=== PATIENT | female | born 2000 | race African-American/Black ===

== ENCOUNTER 2023-09-22 07:43 | Emergency (ER) | payer OTHER, SELFPAY ==
[2023-09-22] VITALS (8 sets, daily range): BP systolic 95–114; BP diastolic 54–71; BMI 39.4
--- NOTE | 2023-09-22 09:08 | ED.GENMED ---
History of Present Illness
General
Chief Complaint: Headache
Source: patient
Exam Limitations: none
Time Seen by Provider: 09/22/23 09:06
Nursing documentation reviewed up to this point in time: agreed with
History of Present Illness
History of Present Illness:
23-year-old female with past medical history of asthma, migraines and emergency department concerns of a headache. Patient reports that for the past few days, she has had a headache and associated sensitivity to light. She states that she feels in
the frontal region and feels that it will wrap around to the back of her head. Patient denies any blurry vision or visual loss. Patient denies any syncopal episodes, seizure like activity. Patient denies any sudden onset of her headaches, denies
neck pain, fevers or chills, weakness on one side of the body, paresthesias. Patient states that she would take 400 mg of ibuprofen for her headache, and this would temporarily resolve her symptoms, only for her headache to return. Patient also
notes that she started to have chest discomfort that started earlier this morning. Patient thinks her father may have had a heart attack, but she is unsure what age. Patient denies any other family history of cardiac disease. Patient denies personal
history of smoking. Patient denies a pleuritic component to her pain. Patient states that her pain is worse with movement. Patient denies any trauma to the area. She does not take any daily medications.
Past History
Past History
ED Past Medical History: None
ED Past Surgical History: None
Social History
Tobacco: Other (hooka)
Alcohol: None
Drug: None
Personal: Single
Living: with family
Employment: Employed
Review of Systems
Review of Systems
All Other Systems: ROS reviewed and negative except as documented in HPI and ROS
Phy Exam
Physical Exam
Physical Exam:
General: Patient is well appearing and in no acute distress; non-toxic
Skin: Warm and dry, no rashes or lesions
Head: Normocephalic, atraumatic. No temporal artery tenderness bilaterally.
Eyes: Sclera non-icteric. EOMs intact. PERRLA.
Cardiac: Regular rate and rhythm, no murmurs. Tenderness palpation of the external chest wall.
Peripheral Vascular: No lower extremity swelling or edema.
Pulm: Normal respiratory effort, no wheezes, rales, rhonchi. Equal breath sounds bilaterally.
Musculoskeletal: 5/5 strength in bilateral upper and lower extremities.
Neuro: CN II-XII intact, no focal neurologic deficits. Normal finger to nose, heel to lindsay testing.
Psychiatric: Appropriate mood and affect.
Scores
PERC Rule Criteria
Age <50 years: Yes
HR <100 bpm: Yes
Room air oxygen sat >94%: Yes
History of DVT or PE: No
Recent trauma or surgery: No
Hemoptysis: No
Exogenous estrogen: No
Clinical signs suggestive of DVT: No
: No
Considered low risk for PE: Yes
PERC Score: 0
PE can be excluded by PERC: Yes
Course
Orders/Labs/Results
Orders:
Orders
09/22/23 07:57
Electrocardiogram (*1) Urgent
Reason for Study: Chest Pain
EKG- Treatment ONCE
09/22/23 09:18
IV Insert/Care/Rem.- Treatment PRN
0.9% Sodium Chloride 1000 ml [Nss] 1,000 ml IV BOLUS
Diphenhydramine [Benadryl] 25 mg IV NOW STA
Ketorolac [Toradol] 15 mg IV NOW STA
Metoclopramide [Reglan] 10 mg IV NOW STA
09/22/23 09:54
CMP [Comprehensive Metabolic Panel] Urgent
Complete Blood Count/With Diff Urgent
HCG, Serum Qualitative Screen Urgent
Comment: ADD ON
Troponin I Urgent
09/22/23 10:00
Add On- LAB Urgent
Tests Added?: HCG qual
09/22/23 11:21
Acetaminophen [Tylenol] 1,000 mg PO NOW STA
Abnormal Lab Results
09/22/23
09:54
RBC 3.63 L 10^6/uL
(4.20-5.40)
Hgb 10.9 L g/dL
(12.0-16.0)
Hct 33.4 L %
(37.0-47.0)
MCHC 32.6 L g/dL
(33.0-37.0)
MPV 11.6 H fL
(7.4-10.4)
09/22/23 09:54
09/22/23 09:54
Vital Signs
Initial and Last Documented VS:
Initial Vital Signs
Temp Pulse Resp BP Pulse Ox
98.7 F 74 16 105/70 99
09/22/23 07:51 09/22/23 07:51 09/22/23 07:51 09/22/23 07:51 09/22/23 07:51
Last Documented Vital Signs
Temp Pulse Resp BP Pulse Ox
98.5 F 73 18 103/71 99
09/22/23 12:26 09/22/23 12:26 09/22/23 12:26 09/22/23 12:26 09/22/23 12:26
MDM/Problems Addressed
Differential Diagnosis Includes:
ddx include complex migraine, tension headache, cluster headache, CVA
MDM/Problems Addressed:
Headache:
23-year-old female with past medical history of asthma, migraines and emergency department concerns of a headache. Patient reports that for the past few days, she has had a headache and associated sensitivity to light. She states that she feels in
the frontal region and feels that it will wrap around to the back of her head. Patient denies any blurry vision or visual loss. Patient denies any syncopal episodes, seizure like activity. Patient denies any sudden onset of her headaches, denies
neck pain, fevers or chills, weakness on one side of the body, paresthesias.
Patient's headache and chest pain resolved with migraine cocktail. Patient states this is similar to migraines she has had in the past. Patient has never seen a neurologist before for this issue and has never been evaluated by her primary for this
issue. Patient has never been on a migraine prevention medication. I spoke to Dr. Pizarro, neurologist geriatric personal care aide who recommends starting Topiramate 25 mg tablet once daily. Patient stable for discharge, provided referral for neurology follow up.
Chronic conditions affecting care:
asthma
Acute Exacerbation and/or Progression of Chronic Illness:
n/a
*Pulse Oximetry
Patient hypoxic: no
*Critical Care Note
Total Time (30-74mins, 75-104mins- exclusive of procedures): Not Applicable
Data Reviewed
Review of Other/Old Records Reveals: Records (Reviewed previous ER physician documentation from 02/11/23, reviewed ER physician documentation from 12/08/2022 where patient was seen for frequent headaches, she got a head CT in April for persistent
headaches which was negative for any acute intracranial abnormality) and Discharge Summary (Discharge summaries in [facility] to review)
Source: patient and records
Further Testing Considered But Not Given:
Considered head CT to evaluate patient's persistent headaches however patient had a normal head CT in April 2022
Patient Management
Escalation/DeEscalation of care consider admission/obs:
Reviewed case with my attending Dr. Rivera, patient stable for discharge.
ED Attending Note
-
Portions of this chart may have been created with voice recognition software.� Occasional wrong word or��sound alike� substitutions may have occurred due to the inherent limitations of voice recognition software.
Discharge Plan
Departure
Patient Disposition: Home (Routine Discharge)
Date of Disposition: 09/22/23
Time of Disposition: 11:57
Patient with high blood pressure during this ER visit?: No
Condition: Good
Discharge Problem:
Migraine headache
Instructions: Migraines (DC)
Prescriptions:
New
topiramate [Topamax] 25 mg tablet
25 mg PO DAILY Qty: 30 0RF
No Action
albuterol sulfate 2.5 mg /3 mL (0.083 %) Solution For Nebulization
2.5 mg INHALATION Q6H PRN (Reason: asthma)
budesonide-formoterol [Symbicort] 160-4.5 mcg/actuation Hfa Aerosol Inhaler
1 puff INHALATION ONCE PRN (Reason: wheezing)
Referrals:
Ritesh Pizarro MD [Active] - Call in 1-3 days for appt
UNKNOWN - PT DOES,NOT KNOW [Family Provider] -
Activity Restrictions/Additional Instructions:
Starting tomorrow, please start taking Topamax one tablet once daily for migraine prevention. Please follow-up with neurology or your primary care provider to have your symptoms reassessed in one week.
Please return emergency department should you experience any acute worsening of your symptoms, return of your chest pain, shortness of breath, lightheadedness, syncopal episodes, visual loss, dizziness, lightheadedness, or any other symptoms
concerning
Interventions
Interventions:
*Risk Screen - Suicide Last Done: 09/22/23 12:26
*General Assessment Last Done: 09/22/23 08:49
*Neglect/Abuse Screening Last Done: 09/22/23 08:49
ED- Fall Risk Assessment Last Done: 09/22/23 08:49
*ED COVID-19 Vaccine History Last Done: 09/22/23 08:49
*Nursing Disposition Last Done: 09/22/23 12:26
ED- Neurological Assessment Last Done: 09/22/23 08:49
Discharge Date and Time
Discharge Date/Time: 09/22/23 12:29
Print Language: IRISH
[2023-09-22] MEDS: TORADOL 15 MG IV (09:48)
[2023-09-22] MEDS: BENADRYL 25 MG IV (09:49)
[2023-09-22] MEDS: NSS 1000 IV (09:49)
[2023-09-22] MEDS: REGLAN 10 MG IV (09:49)
[2023-09-22 09:59] LABS: % Basophils 0.4 % (0-2); % Eosinophils 3.3 % (0-6); % Immature Granulocytes 0.4 % (0-0.5); % Lymphocytes 37.2 % (20.5-51.1); % Monocytes 7.3 % (1.7-9.3); % Neutrophils 51.4 % (42.2-75.2); Absolute Eosinophils 0.2 10^3/uL (0-0.7); Absolute Lymphocytes 1.9 10^3/uL (1.2-3.4); Absolute Monocytes 0.4 10^3/uL (0.1-0.6); Absolute Neutrophils 2.7 10^3/uL (1.4-6.5); Hematocrit 33.4 % (37.0-47.0); Hemoglobin 10.9 g/dL (12.0-16.0); Mean Corp Hgb Conc. 32.6 g/dL (33.0-37.0); Mean Platelet Volume 11.6 fL (7.4-10.4); Nucleated Red Blood Cells % 0 %; Platelet Count 225 10^3/uL (130-400); Red Blood Cell Count 3.63 10^6/uL (4.20-5.40); White Blood Cell Count 5.2 10^3/uL (4.8-10.8)
[2023-09-22 10:24] LABS: Troponin I < 0.012 ng/ml
[2023-09-22 10:30] LABS: ALT (SGPT) 17 U/L (0-35); AST (SGOT) 23 U/L (14-36); Alkaline Phosphatase 77 U/L (38-126); Blood Urea Nitrogen 9 mg/dl (7-17); Calcium 9.2 mg/dl (8.4-10.2); Carbon Dioxide 25 mmol/L (22-30); Chloride 106 mmol/L (98-107); Estimated Creatinine Clearance > 125 ml/min; Glucose 87 mg/dl (70-99); Potassium 4.1 mmol/L (3.5-5.1); Sodium 136 mmol/L (135-145); Total Bilirubin 0.4 mg/dl (0.2-1.3); eGFR > 60.00
[2023-09-22 10:46] LABS: HCG, Serum Qualitative Screen Negative
== END 2023-09-22 12:29 | disposition home or self-care (01) ==
LOC: EMR 07:43
PROVIDERS: Physician Assistant; EMERGENCY PHYSICIAN Emergency Medicine
DX: G43.909 Migraine, unspecified, not intractable, without status migrainosus (principal); R07.89 Other chest pain; F17.290 Nicotine dependence, other tobacco product, uncomplicated; J45.909 Unspecified asthma, uncomplicated; Z88.6 Allergy status to analgesic agent
CPT/HCPCS: 99284; 96374; 96375 ×2; 96361; 80053; 84484; 84703; 85025; 93005

== ENCOUNTER 2024-01-05 08:20 | Emergency (ER) | payer OTHER, SELFPAY ==
[2024-01-05 08:23] VITALS: BP 132/95
--- NOTE | 2024-01-05 08:41 | ED.GENMED ---
History of Present Illness
General
Chief Complaint: Breathing Problem
Source: patient and family (Mother at bedside)
Exam Limitations: none
Time Seen by Provider: 01/05/24 08:30
Nursing documentation reviewed up to this point in time: agreed with
History of Present Illness
History of Present Illness:
23-year-old female with history of asthma states for the past week she has had increasing shortness of breath, 'tightness in my chest.' Has been using home nebulizer (last at 2 a.m.) and Albuterol inhaler(last at 6 a.m.). Her old nebulizer broke so
she ordered one on [employer] and she states it does not work as well. Denies f/c/n/v/d/c.
Past History
Past History
ED Past Medical History: Asthma
ED Past Surgical History: None
Social History
Tobacco: Non-smoker (hooka)
Alcohol: Occasional
Drug: None
Personal: Single
Living: with family
Employment: Employed
Review of Systems
Review of Systems
Allergies reviewed?: Yes
All Other Systems: ROS reviewed and negative except as documented in HPI and ROS
Constitutional: Denies fever or chills
Respiratory: Reports trouble breathing; Denies cough
Cardiac: Denies chest pain
ABD/GI: Denies abdominal pain, nausea, vomiting or diarrhea
: Denies dysuria, frequency or urgency
Musculoskeletal: Reports no symptoms
Skin: Reports no symptoms
Neurological: Reports no symptoms
Phy Exam
Physical Exam
Physical Exam:
GENERAL: No acute distress. A&Ox3.
CONSTITUTIONAL: Afebrile.
EYES: clear, conjunctivae normal
ENMT: moist mucus membranes, Pharynx nl
RESPIRATORY: Regular respirations, nonlabored, lungs with low pitched mild expiratory wheezes right lung [place]
CARDIOVASCULAR: Regular rate and rhythm, no murmurs, no rubs.
GI: Soft, nontender
MUSCULOSKELETAL: Moves with ease. Well perfused.
SKIN: Warm, dry, normal
PSYCH: Normal mood and affect. Well kept, interactive and appropriate
NEUROLOGIC: Awake, alert and oriented. No focal neurological deficits
Course
Orders/Labs/Results
Orders:
Orders
01/05/24 08:32
Electrocardiogram (*1) Urgent
Reason for Study: Shortness of Breath
EKG- Treatment ONCE
01/05/24 08:41
Dexamethasone [Decadron] 10 mg PO NOW STA
Ipratropium/Albuterol Sulfate [Duoneb] 3 ml INH R NOW STA
CR Chest - 2 Views Urgent
Comment:
Reason For Exam: SOB hx asthma
01/05/24 09:28
Ipratropium/Albuterol Sulfate [Duoneb] 3 ml INH R NOW STA
01/05/24 09:48
Azithromycin [Zithromax] 500 mg PO NOW STA
Vital Signs
Initial and Last Documented VS:
Initial Vital Signs
Temp Pulse Resp BP Pulse Ox
98.7 F 95 18 132/95 99
01/05/24 08:23 01/05/24 08:23 01/05/24 08:23 01/05/24 08:23 01/05/24 08:23
Last Documented Vital Signs
Temp Pulse Resp BP Pulse Ox
98.7 F 99 18 132/95 98
01/05/24 08:23 01/05/24 09:52 01/05/24 09:52 01/05/24 08:23 01/05/24 09:52
MDM/Problems Addressed
Differential Diagnosis Includes:
asthma, PNA
MDM/Problems Addressed:
23-year-old female with history of asthma states for the past week she has had increasing shortness of breath, 'tightness in my chest.' Has been using home nebulizer (last at 2 a.m.) and Albuterol inhaler(last at 6 a.m.). Her old nebulizer broke so
she ordered one on [employer] and she states it does not work as well. Denies f/c/n/v/d/c.
Afebrile, NAD
EKG NSR
9:30 a.m.
After Duoneb a little improvement, no wheezing but still feels 'tight' in chest
Duoneb #2 ordered
CXR NAD
Occasional cough, no wheezing, tx for asthma/bronchitis
Pt will be discharged with nebulizer
Rx for Azithromycin, Albuterol neb solution and Prednisone taper sent to her pharmacy
*Pulse Oximetry
Patient hypoxic: no
*EKG
Interpreted by ED Provider?: Yes
EKG Intrepretation Date: 01/05/24
Interpretation: normal
Heart Rate: 76
[place]: normal axis
Interval: normal interval
QRS Pattern: normal QRS
Ischemia: no ischemia
*Critical Care Note
Total Time (30-74mins, 75-104mins- exclusive of procedures): Not Applicable
ED Attending Note
-
Portions of this chart may have been created with voice recognition software.� Occasional wrong word or��sound alike� substitutions may have occurred due to the inherent limitations of voice recognition software.
Discharge Plan
Departure
Patient Disposition: Home (Routine Discharge)
Date of Disposition: 01/05/24
Time of Disposition: 09:49
Patient with high blood pressure during this ER visit?: Yes
Condition: Good
Discharge Problem:
Acute bronchitis
Instructions: Asthma, Adult (DC), Acute Bronchitis, Adult (DC)
Prescriptions:
New
prednisone 10 mg Tablet
See Rx Instructions .ROUTE .COMPLEX Qty: 30 0RF
Rx Instructions:
Take By Mouth:
40 mg daily x3 days, 30 mg daily x3 days,
20 mg daily x3 days, 10 mg daily x3 days.
azithromycin 250 mg tablet
250 mg PO DAILY 4 Days Qty: 4 0RF
albuterol sulfate 2.5 mg /3 mL (0.083 %) solution for nebulization
2.5 mg inhalation Q4H PRN (Reason: shortness of breath or wheezing) Qty: 75 0RF
No Action
albuterol sulfate 2.5 mg /3 mL (0.083 %) Solution For Nebulization
2.5 mg INHALATION Q6H PRN (Reason: asthma)
budesonide-formoterol [Symbicort] 160-4.5 mcg/actuation Hfa Aerosol Inhaler
1 puff INHALATION ONCE PRN (Reason: wheezing)
topiramate [Topamax] 25 mg tablet
25 mg PO DAILY Qty: 30 0RF
Referrals:
Mercer,Thy T, PA [Non-Admitting Privileges] - As needed
Stand Alone Forms: Return to Work
Activity Restrictions/Additional Instructions:
As we discussed, I sent a prescription to your pharmacy for Prednisone taper and Azithromycin. Start them tomorrow as you were given a dose of steroid here today.
See your doctor in 3-5 days if not much improved by then
Interventions
Interventions:
*Risk Screen - Suicide Last Done: 01/05/24 08:23
*General Assessment Last Done: 01/05/24 08:23
*Neglect/Abuse Screening Last Done: 01/05/24 08:23
ED- Fall Risk Assessment Last Done: 01/05/24 08:51
*ED COVID-19 Vaccine History Last Done: 01/05/24 09:45
*Nursing Disposition Last Done: 01/05/24 09:52
ED- Cardiac Assessment Last Done: 01/05/24 08:51
ED- Pulmonary Assessment Last Done: 01/05/24 08:51
Discharge Date and Time
Discharge Date/Time: 01/05/24 09:52
Print Language: GREENLANDIC
[2024-01-05] MEDS: DUONEB 3 ML INH ×2 (08:46→09:35)
[2024-01-05] MEDS: DECADRON 10 MG PO (08:46)
== END 2024-01-05 09:52 | disposition home or self-care (01) ==
LOC: EMR 08:20
PROVIDERS: EMERGENCY PHYSICIAN Student in an Organized Health Care Education/Training Program
DX: J20.9 Acute bronchitis, unspecified (principal); J45.909 Unspecified asthma, uncomplicated
CPT/HCPCS: 99284; 71046; 93005

== ENCOUNTER 2024-04-28 08:07 | Emergency (ER) | payer OTHER, SELFPAY ==
[2024-04-28 08:08] VITALS: BP 143/84
[2024-04-28 08:46] VITALS: BP 131/66
--- NOTE | 2024-04-28 08:58 | ED.GENMED ---
History of Present Illness
General
Chief Complaint: Chest Pain
Source: patient
Exam Limitations: none
Time Seen by Provider: 04/28/24 08:25
History of Present Illness
History of Present Illness:
23yoF with a history of obesity and asthma presenting for evaluation of chest pain. She reports constant chest discomfort over the past 3 days. Pain is located throughout her chest and is described as a heaviness. Nothing seems to make the pain
better or worse. She tried to use her albuterol inhaler last night which did not help. She also reports that her left arm feels 'out of control' and she has some intermittent tingling to the left foot. She denies any weakness in the extremities.
Additionally, she is having some urinary frequency and is requesting to be checked for a UTI. She is otherwise asymptomatic and denies any fevers, cough, shortness of breath, dizziness, syncope, leg swelling. No OCP use.
Past History
Past History
ED Past Medical History: Asthma
ED Past Surgical History: None
Social History
Tobacco: Non-smoker (hooka)
Alcohol: Occasional
Drug: None
Personal: Single
Living: with family
Employment: Employed
Phy Exam
General Physical Exam
General Presentation: well appearing and no apparent distress
General age: appears stated age
General Skin: warm and dry
General Habitus: normal
General Mental: alert
ENT Exam
ENT Exam: normocephalic
Eye Exam
Eye Exam: PERRL and conjunctiva normal
Cardiovascular Exam
Cardiovascular Exam: regular rate/rhythm, no edema, no murmur and normal peripheral pulses (2+ radial and DP pulses bilaterally)
Pulmonary Exam
Pulmonary Exam: lungs clear, no respiratory distress, no rales, no crackles and no rhonchi
Neurological Exam
Neurological Exam: alert and other (5/5 strength and sensation intact in all extremities. Negative drift x4. )
[place] Coma Scale
Eye Opening: Spontaneous
Verbal Response: Oriented
Motor Response: Obeys Commands
GCS Total Score: 15
Skin Exam
Skin Exam: normal color and warm/dry
Psychiatric Exam
Psychiatric Exam: normal mood/affect
Scores
Heart Score for Chest Pain Patients
STEMI patient?: No
History: Slightly or Non-Suspicious
ECG: Normal
Age: </= 45 years
Risk Factors: 1 or 2 Risk Factors
Troponin: </= Normal Limit
Heart Score for Chest Pain Patients: 1
Heart Score Risk: 2.5% MACE over next 6 weeks
PE Wells Score
Symptoms of DVT: No
No alternative diagnosis better explains the illness: No
Tachycardia with pulse > 100: No
Immobilization (>=3 days) or surgery within previous 4 weeks: No
Prior history of DVT or pulmonary embolism: No
Presence of hemoptysis: No
Presence of malignancy: No
Pulmonary Embolism Risk Score: 0
Probability of PE: Pt is low risk
PERC Rule Criteria
Age <50 years: Yes
HR <100 bpm: Yes
Room air oxygen sat >94%: Yes
History of DVT or PE: No
Recent trauma or surgery: No
Hemoptysis: No
Exogenous estrogen: No
Clinical signs suggestive of DVT: No
: No
Considered low risk for PE: Yes
PERC Score: 0
PE can be excluded by PERC: Yes
Course
Orders/Labs/Results
Orders:
Orders
04/28/24 08:11
Electrocardiogram (*1) Urgent
Reason for Study: Chest Pain
EKG- Treatment ONCE
04/28/24 08:58
Cardiac Monitoring- Treatment ONCE
Test Result ONCE
CR Chest - 2 Views Urgent
Comment:
Reason For Exam: CP
04/28/24 09:02
Complete Blood Count/With Diff Urgent
Comprehensive Metabolic Panel Urgent
HCG, Serum Qualitative Screen Urgent
Lipase Urgent
Comment: ADD ON
TSH Reflex To Free T4 Urgent
Troponin I Urgent
Urinalysis Reflex To Culture Urgent
Date Specimen was Collected: 04/28/24
Time Specimen was Collected: 09:01
Urine Microscopic Reflex Cult Urgent
04/28/24 09:38
Ondansetron Injectable [Zofran] 4 mg IV NOW STA
04/28/24 11:11
Add On- LAB Urgent
Tests Added?: lipase
Famotidine [Pepcid] 20 mg PO NOW STA
Mag Hydrox/Al Hydrox/Simeth [Maalox] 30 ml PO NOW STA
US Abdomen Complete/Upper Urgent
Comment:
Reason For Exam: upper abd discomfort
Abnormal Lab Results
04/28/24
09:02
RBC 3.77 L 10^6/uL
(4.20-5.40)
Hgb 11.4 L g/dL
(12.0-16.0)
Hct 35.5 L %
(37.0-47.0)
MCHC 32.1 L g/dL
(33.0-37.0)
MPV 11.9 H fL
(7.4-10.4)
Absolute Monos (auto) 0.7 H 10^3/uL
(0.1-0.6)
Immature Gran % 0.6 H %
(0-0.5)
Monocytes % 9.5 H %
(1.7-9.3)
Urine Bacteria (Reflex) Few A
(Negative)
Urine Albumin (Reflex) 1+ A
(Neg - Trace)
04/28/24 09:02
04/28/24 09:02
Vital Signs
Initial and Last Documented VS:
Initial Vital Signs
Temp Pulse Resp BP Pulse Ox
98.1 F 84 16 143/84 100
04/28/24 08:08 04/28/24 08:08 04/28/24 08:08 04/28/24 08:08 04/28/24 08:08
Last Documented Vital Signs
Temp Pulse Resp BP Pulse Ox
98.1 F 76 16 131/71 99
04/28/24 08:08 04/28/24 13:06 04/28/24 13:06 04/28/24 13:06 04/28/24 13:06
MDM/Problems Addressed
Differential Diagnosis Includes:
23yoF here with chest heaviness x 2-3 days. Also c/o L arm feeling 'out of control' and intermittent tingling in L foot. She is mildly hypertensive in triage with otherwise normal vitals. She is well appearing in no distress. Equal pulses noted in
all extremities and no focal neuro deficits noted. Differential diagnosis includes but is not limited to: arrhythmia, ACS, pneumonia, pneumothorax, electrolyte abnormality, thyroid dysfunction
Initial ED plan: Check cardiac labs, TSH, UA, EKG, and CXR. Wells score is low and PERC negative, PE is clinically ruled out.
*EKG
Interpreted by ED Provider?: Yes
EKG Intrepretation Date: 04/28/24
Heart Rate: 81
Rate: normal
Rhythm: sinus
[place]: normal axis
Interval: normal interval
QRS Pattern: normal QRS
Ischemia: no ischemia
*Critical Care Note
Total Time (30-74mins, 75-104mins- exclusive of procedures): Not Applicable
Update Note
Update Note:
Labs overall unremarkable including normal electrolytes and TSH. EKG shows normal sinus rhythm without ischemic changes and troponin within normal limits. Chest x-ray is clear. Upon returning from x-ray, patient developed nausea and vomiting.
She also now reports a burning epigastric pain. IV Zofran and p.o. GI cocktail ordered. Patient now requesting an abdominal ultrasound which was ordered. Ultrasound came back negative for any acute findings. Specifically, there are no gallstones
noted. Lipase added which is normal. Patient is stable for discharge. Prescriptions provided for Pepcid and Zofran per request. She was advised to follow-up with her PCP. ED return precautions discussed. Patient in agreement with plan and was
discharged in stable condition.
ED Attending Note
-
Portions of this chart may have been created with voice recognition software.� Occasional wrong word or��sound alike� substitutions may have occurred due to the inherent limitations of voice recognition software.
Discharge Plan
Departure
Patient Disposition: Home (Routine Discharge)
Date of Disposition: 04/28/24
Time of Disposition: 12:56
Patient with high blood pressure during this ER visit?: No
Discharge Problem:
Chest pain, Nausea
Instructions: Chest Pain PCP Follow Up
Prescriptions:
New
famotidine 20 mg tablet
20 mg PO BID PRN (Reason: acid reflux) Qty: 30 0RF
ondansetron 4 mg tablet,disintegrating
4 mg PO Q6H PRN (Reason: nausea and vomiting) Qty: 20 0RF
No Action
albuterol sulfate 2.5 mg /3 mL (0.083 %) Solution For Nebulization
2.5 mg INHALATION Q6H PRN (Reason: asthma)
budesonide-formoterol [Symbicort] 160-4.5 mcg/actuation Hfa Aerosol Inhaler
1 puff INHALATION ONCE PRN (Reason: wheezing)
topiramate [Topamax] 25 mg tablet
25 mg PO DAILY Qty: 30 0RF
prednisone 10 mg Tablet
See Rx Instructions .ROUTE .COMPLEX Qty: 30 0RF
Rx Instructions:
Take By Mouth:
40 mg daily x3 days, 30 mg daily x3 days,
20 mg daily x3 days, 10 mg daily x3 days.
azithromycin 250 mg tablet
250 mg PO DAILY 4 Days Qty: 4 0RF
albuterol sulfate 2.5 mg /3 mL (0.083 %) solution for nebulization
2.5 mg inhalation Q4H PRN (Reason: shortness of breath or wheezing) Qty: 75 0RF
Referrals:
UNKNOWN - PT DOES,NOT KNOW [Family Provider] -
Stand Alone Forms: Return to Work
Activity Restrictions/Additional Instructions:
Take famotidine (Pepcid) as needed for acid reflux. Take Zofran as needed for nausea.
Please follow-up with your family doctor. Return to the ER with any new or worsening symptoms.
Interventions
Interventions:
*Risk Screen - Suicide Last Done: 04/28/24 08:08
*General Assessment Last Done: 04/28/24 09:00
*Neglect/Abuse Screening Last Done: 04/28/24 08:08
ED- Fall Risk Assessment Last Done: 04/28/24 08:59
*ED COVID-19 Vaccine History Last Done: 04/28/24 09:00
*Nursing Disposition Last Done: 04/28/24 13:06
ED- Cardiac Assessment Last Done: 04/28/24 08:59
Discharge Date and Time
Discharge Date/Time: 04/28/24 13:07
Print Language: COMORAN
[2024-04-28 09:24] LABS: % Basophils 0.3 % (0-2); % Eosinophils 4.2 % (0-6); % Immature Granulocytes 0.6 % (0-0.5); % Lymphocytes 32.5 % (20.5-51.1); % Monocytes 9.5 % (1.7-9.3); % Neutrophils 52.9 % (42.2-75.2); Absolute Eosinophils 0.3 10^3/uL (0-0.7); Absolute Lymphocytes 2.3 10^3/uL (1.2-3.4); Absolute Monocytes 0.7 10^3/uL (0.1-0.6); Absolute Neutrophils 3.7 10^3/uL (1.4-6.5); Hematocrit 35.5 % (37.0-47.0); Hemoglobin 11.4 g/dL (12.0-16.0); Mean Corp Hgb Conc. 32.1 g/dL (33.0-37.0); Mean Corpuscular Hgb 30.2 pg (27.0-31.0); Mean Corpuscular Volume 94.2 fL (81.0-99.0); Mean Platelet Volume 11.9 fL (7.4-10.4); Nucleated Red Blood Cells % 0 %; Platelet Count 231 10^3/uL (130-400); Red Blood Cell Count 3.77 10^6/uL (4.20-5.40); Red Cell Dist. Width 12.8 % (11.5-14.5)
[2024-04-28 09:25] LABS: Urine Albumin 1+ (Neg - Trace); Urine Bilirubin Negative (Negative); Urine Character Clear (Clear); Urine Color Yellow; Urine Glucose Negative (Negative); Urine Ketone Negative (Negative); Urine Leukocyte Negative (Negative); Urine Nitrite Negative (Negative); Urine Occult Blood Negative (Negative); Urine Urobilinogen Negative (Neg - 1+)
[2024-04-28 09:35] LABS: HCG, Serum Qualitative Screen Negative
[2024-04-28 09:38] VITALS: BP 129/74
[2024-04-28] MEDS: ZOFRAN 4 MG IV (09:40)
[2024-04-28 09:41] LABS: ALT (SGPT) 17 U/L (0-35); AST (SGOT) 20 U/L (14-36); Albumin 3.9 g/dl (3.5-5.0); Alkaline Phosphatase 79 U/L (38-126); Blood Urea Nitrogen 15 mg/dl (7-17); Calcium 9.3 mg/dl (8.4-10.2); Carbon Dioxide 25 mmol/L (22-30); Chloride 102 mmol/L (98-107); Glucose 93 mg/dl (70-99); Potassium 4.4 mmol/L (3.5-5.1); Sodium 136 mmol/L (135-145); Total Bilirubin 0.4 mg/dl (0.2-1.3); eGFR > 60.00
[2024-04-28 09:49] LABS: Troponin I < 0.012 ng/ml
[2024-04-28 10:16] LABS: Urine Bacteria Few (Negative); Urine Red Blood Cell 0-2 /HPF (0-2); Urine Squamous Cell 16-20 /LPF (Few); Urine White Cell 0-2 /HPF (0-5)
[2024-04-28 10:46] LABS: TSH Reflex To Free T4 1.84 uIU/ml (0.47-4.68)
[2024-04-28] MEDS: PEPCID 20 MG PO (11:27)
[2024-04-28] MEDS: MAALOX 30 ML PO (11:28)
[2024-04-28 11:53] LABS: Lipase 132 U/L (23-300)
[2024-04-28 13:06] VITALS: BP 131/71
== END 2024-04-28 13:07 | disposition home or self-care (01) ==
LOC: EMR 08:07
PROVIDERS: Physician Assistant; EMERGENCY PHYSICIAN Emergency Medicine
DX: R07.89 Other chest pain (principal); R11.0 Nausea; J45.909 Unspecified asthma, uncomplicated
CPT/HCPCS: 99285; 96374; 71046; 76700; 80053; 81003; 81015; 83690; 84443; 84484; 84703; 85025; 93005